=== PATIENT | female | born 2000 | race Two or more races ===

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

== ENCOUNTER 2018-02-03 13:15 | Emergency (ER) | payer SELFPAY ==
[~2018-02-03] VITALS: Ht 154.9 cm; Wt 79.4 kg
[2018-02-03 13:20] VITALS: BP 133/84
== END 2018-02-03 14:26 | disposition home or self-care (01) ==
LOC: ER 13:15
DX: J03.90 Acute tonsillitis, unspecified (principal); J40 Bronchitis, not specified as acute or chronic

== ENCOUNTER 2021-12-17 09:18 | Emergency (ER) | payer MEDICAID, OTHER ==
[~2021-12-17] VITALS: Ht 152.4 cm; Wt 63.5 kg
[2021-12-17 09:56] LABS: Urine Bacteria FEW /hpf (None Seen); Urine Blood 3+ /uL (Negative); Urine Mucus FEW (None Seen); Urine Specific Gravity 1.033 (1.001-1.035); Urine WBC 57 /hpf (0 - 5)
[2021-12-17 10:33] LABS: Basophils # (auto) 0 10 ^3/uL (0-0.2); Basophils % (auto) 0.7 % (0.0-2.0); Eosinophils # (auto) 0 10 ^3/uL (0-0.8); Eosinophils % (auto) 0.5 % (0.0-7.0); Hematocrit 42.2 % (36.0-46.0); Hemoglobin 14.2 g/dL (12.2-16.2); Lymphocytes # (auto) 1.6 10 ^3/uL (0.4-5.4); Lymphocytes % (auto) 29.3 % (10.0-50.0); Mean Corpuscular Hgb Conc. 33.7 g/dL (32.0-36.0); Mean Corpuscular Volume 85.9 fL (80.0-100.0); Monocytes # (auto) 0.7 10 ^3/uL (0-1.3); Monocytes % (auto) 13.2 % (0.0-12.0); Neutrophils # (auto) 3.2 10 ^3/uL (1.6-8.6); Neutrophils % (auto) 56.3 % (37.0-80.0); Nucleated Red Blood Cells % 0.1 %; Red Blood Cells 4.91 10^6/uL (4.0-5.20); Red Cell Distribution Width 14.1 % (11.8-14.3); White Blood Cell 5.6 10^3/uL (4.4-10.8)
[2021-12-17 13:05] VITALS: BP 121/84
[2021-12-17] MEDS ORDERED: NITR-87 PO (13:25)
== END 2021-12-17 14:27 | disposition home or self-care (01) ==
LOC: ER 09:18
DX: O20.0 Threatened abortion (principal); O23.41 Unspecified infection of urinary tract in pregnancy, first trimester; N39.0 Urinary tract infection, site not specified; Z3A.01 Less than 8 weeks gestation of pregnancy
CPT/HCPCS: 36415; 76801; 76817; 81001; 81025; 84702; 85025

== ENCOUNTER 2022-01-13 22:07 | Emergency (ER) | payer OTHER ==
[~2022-01-13] VITALS: Ht 152.4 cm; Wt 64.4 kg
[~2022-01-13 22:07] MED LIST: NITR-87 PO
[2022-01-13 22:08] VITALS: BP 108/65
[2022-01-13] MEDS ORDERED: LIDOCAINE 1% HCL (LOCAL ANESTH.) INJ 20ML MDV IJ ONE ×2 (23:00→23:15)
[2022-01-13] MEDS ORDERED: LIDOCAINE 1%HCL (LOCAL ANESTH) 10 ML MDV ONE (23:07)
[2022-01-13] MEDS ORDERED: CEPH-509 PO (23:43)
== END 2022-01-13 23:49 | disposition home or self-care (01) ==
LOC: ER 22:07
DX: L02.214 Cutaneous abscess of groin (principal); Z79.899 Other long term (current) drug therapy
CPT/HCPCS: 10060; 99283; J2001

== ENCOUNTER 2022-01-20 10:00 | Emergency (ER) | payer OTHER ==
[~2022-01-20] VITALS: Ht 152.4 cm; Wt 64.4 kg
[~2022-01-20 10:00] MED LIST changes: +CEPH-509 PO
[2022-01-20 10:10] VITALS: BP 124/73
[2022-01-20 10:39] LABS: Basophils # (auto) 0 10 ^3/uL (0-0.2); Basophils % (auto) 0.5 % (0.0-2.0); Eosinophils # (auto) 0.1 10 ^3/uL (0-0.8); Eosinophils % (auto) 1.6 % (0.0-7.0); Hematocrit 39.9 % (36.0-46.0); Hemoglobin 13.3 g/dL (12.2-16.2); Lymphocytes # (auto) 1.9 10 ^3/uL (0.4-5.4); Lymphocytes % (auto) 26.8 % (10.0-50.0); Mean Corpuscular Hemoglobin 28.5 pg (28.0-32.0); Mean Corpuscular Hgb Conc. 33.3 g/dL (32.0-36.0); Mean Corpuscular Volume 85.7 fL (80.0-100.0); Monocytes # (auto) 0.6 10 ^3/uL (0-1.3); Neutrophils # (auto) 4.4 10 ^3/uL (1.6-8.6); Neutrophils % (auto) 63.1 % (37.0-80.0); Nucleated Red Blood Cells % 0.1 %; Red Blood Cells 4.66 10^6/uL (4.0-5.20); Red Cell Distribution Width 15.4 % (11.8-14.3); White Blood Cell 6.9 10^3/uL (4.4-10.8)
[2022-01-20 10:48] LABS: Urine Bacteria NONE SEEN /hpf (None Seen); Urine Blood Negative /uL (Negative); Urine Specific Gravity 1.022 (1.001-1.035); Urine WBC 26 /hpf (0 - 5)
[2022-01-20] MEDS ORDERED: SULF400T11 PO (12:26)
== END 2022-01-20 12:35 | disposition home or self-care (01) ==
LOC: ER 10:00
DX: N92.6 Irregular menstruation, unspecified (principal); N39.0 Urinary tract infection, site not specified; Z32.02 Encounter for pregnancy test, result negative; Z79.899 Other long term (current) drug therapy
CPT/HCPCS: 36415; 81001; 81025; 84702; 85025

== ENCOUNTER 2022-02-04 16:55 | Emergency (ER) | payer OTHER ==
[~2022-02-04] VITALS: Ht 152.4 cm; Wt 64.4 kg
[~2022-02-04 16:55] MED LIST changes: +SULF400T11 PO
[2022-02-04 17:46] LABS: Urine Bacteria NONE SEEN /hpf (None Seen); Urine Blood Negative /uL (Negative); Urine Mucus FEW (None Seen); Urine Specific Gravity 1.029 (1.001-1.035); Urine WBC 26 /hpf (0 - 5)
[2022-02-04] MEDS ORDERED: ACETAMINOPHEN 325 MG TAB PO ONE (18:30)
[2022-02-04 22:04] VITALS: BP 122/73
== END 2022-02-04 22:04 | disposition home or self-care (01) ==
LOC: ER 16:55
DX: S05.11XA Contusion of eyeball and orbital tissues, right eye, initial encounter (principal); Z79.899 Other long term (current) drug therapy; X58.XXXA Exposure to other specified factors, initial encounter; Y93.89 Activity, other specified; Y92.89 Other specified places as the place of occurrence of the external cause; Y99.8 Other external cause status
CPT/HCPCS: 70486; 81001; 81025

== ENCOUNTER 2022-07-10 09:52 | Emergency (ER) | payer SELFPAY ==
[~2022-07-10] VITALS: Ht 152.4 cm; Wt 75.0 kg
[2022-07-10 10:49] VITALS: BP 121/82
[2022-07-10 11:15] LABS: Urine Bacteria NONE SEEN /hpf (None Seen); Urine Blood Negative /uL (Negative); Urine Specific Gravity 1.002 (1.001-1.035); Urine WBC 1 /hpf (0 - 5)
[2022-07-10] MEDS ORDERED: NAPR500T31 PO (13:14)
== END 2022-07-10 13:16 | disposition home or self-care (01) ==
LOC: ER 09:52
DX: R10.2 Pelvic and perineal pain (principal); N83.02 Follicular cyst of left ovary
CPT/HCPCS: 76856; 81001; 81025

== ENCOUNTER 2022-09-07 20:19 | Emergency (ER) | payer SELFPAY ==
[~2022-09-07] VITALS: Ht 152.4 cm; Wt 73.4 kg
[~2022-09-07 20:19] MED LIST changes: +NAPR500T31 PO
[2022-09-08] MEDS ORDERED: CEPH-510 PO (03:08)
[2022-09-08] MEDS ORDERED: HYDR-3682 PO (03:08)
[2022-09-08 04:00] VITALS: BP 120/86
== END 2022-09-08 04:06 | disposition home or self-care (01) ==
LOC: ER 20:25
DX: L01.00 Impetigo, unspecified (principal)

== ENCOUNTER 2022-10-26 18:58 | Emergency (ER) | payer SELFPAY ==
[~2022-10-26] VITALS: Ht 152.4 cm; Wt 74.9 kg
[~2022-10-26 18:58] MED LIST changes: +CEPH-510 PO; +HYDR-3682 PO
[2022-10-26 19:23] VITALS: BP 112/66
[2022-10-27] MEDS ORDERED: KETOROLAC TROMETH 60MG/2ML VIAL IM ONE (00:30)
[2022-10-27] MEDS ORDERED: cefTRIAXone SOD 1,000 MG VL IM ONE (00:30)
[2022-10-27] MEDS ORDERED: ACET-1158 PO (00:33)
[2022-10-27] MEDS ORDERED: SULF800T7 PO (00:33)
== END 2022-10-27 05:40 | disposition home or self-care (01) ==
LOC: ER 18:58
DX: L02.415 Cutaneous abscess of right lower limb (principal); Z79.899 Other long term (current) drug therapy; Z88.6 Allergy status to analgesic agent
CPT/HCPCS: 10060; 81002; 96372; 99284; J0696; J1885

== ENCOUNTER 2022-10-29 06:39 | Emergency (ER) | payer SELFPAY ==
[~2022-10-29] VITALS: Ht 152.4 cm; Wt 74.1 kg
[~2022-10-29 06:39] MED LIST changes: +ACET-1158 PO; +SULF800T7 PO
[2022-10-29 07:12] VITALS: BP 120/74
== END 2022-10-29 07:26 | disposition home or self-care (01) ==
LOC: ER 06:39
DX: Z48.01 Encounter for change or removal of surgical wound dressing (principal); L02.415 Cutaneous abscess of right lower limb

== ENCOUNTER 2024-01-22 15:08 | Emergency (ER) | payer MEDICAID ==
[~2024-01-22] VITALS: Ht 152.4 cm; Wt 71.7 kg
[~2024-01-22 15:08] MED LIST changes: -ACET-1158 PO; +ACET500T58 PO; +NAPR-746 PO; -NAPR500T31 PO; +SULF800T23 PO; -SULF800T7 PO
[2024-01-22 15:58] LABS: Urine Bacteria None Seen /hpf (None Seen)
[2024-01-22 16:06] LABS: Urine Blood Negative /uL (Negative); Urine Clarity Clear (Clear); Urine Color Yellow (Yellow); Urine Mucus FEW (None Seen); Urine Protein, UAD Negative (Negative); Urine Specific Gravity 1.027 (1.001-1.035); Urine Urobilinogen Normal (Negative); Urine WBC 3 /hpf (0 - 5)
[2024-01-22] MEDS ORDERED: CEPH250C PO (16:20)
[2024-01-22 16:57] VITALS: BP 109/69; PULSE 74; RESP 20; TEMP 98.3; O2SAT 97
== END 2024-01-22 17:06 | disposition home or self-care (01) ==
LOC: ER 15:08
DX: O23.42 Unspecified infection of urinary tract in pregnancy, second trimester (principal); R10.2 Pelvic and perineal pain; N39.0 Urinary tract infection, site not specified; Z3A.18 18 weeks gestation of pregnancy
CPT/HCPCS: 36415; 76805; 81001; 84702

== ENCOUNTER 2024-01-27 16:20 | Emergency (ER) | payer MEDICAID ==
[~2024-01-27] VITALS: Ht 172.7 cm; Wt 71.8 kg
[~2024-01-27 16:20] MED LIST changes: +CEPH250C PO
[2024-01-27 17:17] VITALS: BP 104/62; PULSE 78; RESP 16; TEMP 99.4; O2SAT 98
== END 2024-01-27 18:02 | disposition home or self-care (01) ==
LOC: ER 16:20
DX: Z34.02 Encounter for supervision of normal first pregnancy, second trimester (principal); Z3A.19 19 weeks gestation of pregnancy; Z79.899 Other long term (current) drug therapy
CPT/HCPCS: 76815

== ENCOUNTER 2024-03-09 21:27 | Observation (INO) | payer MEDICAID ==
[~2024-03-09] VITALS: Ht 152.4 cm; Wt 79.8 kg
[2024-03-09] MEDS ORDERED: PREN-96 PO ×2 (22:44→22:46)
== END 2024-03-09 23:28 | disposition home or self-care (01) ==
LOC: LDRP 21:27
PROVIDERS: ADMIT Obstetrics & Gynecology; ATTEND Obstetrics & Gynecology
DX: O36.8120 Decreased fetal movements, second trimester, not applicable or unspecified (principal); O26.892 Other specified pregnancy related conditions, second trimester; R10.9 Unspecified abdominal pain; Z3A.25 25 weeks gestation of pregnancy
CPT/HCPCS: 59025; 76815; 81002; 94760; G0378